=== PATIENT | male | born 1930 | race Caucasian/White ===

== ENCOUNTER 2016-08-05 20:25 | Inpatient (IN) | payer MEDICARE ==
[~2016-08-05] VITALS: Ht 175.3 cm; Wt 108.9 kg
[2016-08-05 22:48] LABS: RED BLOOD COUNT 5.22 M/UL (4.20-5.50); WHITE BLOOD COUNT 11.8 K/UL (4.5-11.0)
[2016-08-06 05:42] LABS: HEMOGLOBIN 13.7 gm/dl (14.0-17.5); RED BLOOD COUNT 4.72 M/UL (4.20-5.50)
[2016-08-06 06:08] LABS: BUN/CREATININE RATIO 15 (0-10)
[2016-08-06] MEDS ORDERED: HUMULIN N100 UNIT/1 SQ (10:09)
[2016-08-06] MEDS ORDERED: SYNTHROID25 MCG PO (10:09)
[2016-08-06] MEDS ORDERED: CARDURA 2MG TAB2 MG PO (10:10)
[2016-08-06] MEDS ORDERED: PROTONIX40 MG PO (10:11)
[2016-08-06] MEDS ORDERED: METOPROLOL SUCC25 MG PO (10:11)
[2016-08-06] MEDS ORDERED: ZOLOFT25 MG PO (10:12)
[2016-08-06] MEDS ORDERED: ZOCOR10 MG PO (10:12)
[2016-08-06] MEDS ORDERED: LASIX20 MG PO (10:12)
[2016-08-06] MEDS ORDERED: CATAPRES 0.1MG0.1 MG PO (10:13)
[2016-08-06] MEDS ORDERED: ASPIRIN EC81 MG PO (10:14)
[2016-08-06] MEDS ORDERED: LANTUS100 UNIT/1 SQ (10:14)
[2016-08-06] MEDS ORDERED: LISINOPRIL40 MG PO (10:23)
[2016-08-06] MEDS ORDERED: ZYRTEC10 MG PO (10:24)
[2016-08-06] MEDS ORDERED: NORVASC 5 MG TAB5 MG PO (10:25)
[2016-08-06 22:06] LABS: RED BLOOD COUNT 4.53 M/UL (4.20-5.50); WHITE BLOOD COUNT 10.1 K/UL (4.5-11.0)
[2016-08-07 05:51] LABS: HEMOGLOBIN 12.9 gm/dl (14.0-17.5); RED BLOOD COUNT 4.55 M/UL (4.20-5.50); WHITE BLOOD COUNT 9.7 K/UL (4.5-11.0)
[2016-08-08 04:14] LABS: HEMOGLOBIN 11.1 gm/dl (14.0-17.5); WHITE BLOOD COUNT 9.2 K/UL (4.5-11.0)
[2016-08-08 04:20] LABS: RED BLOOD COUNT 3.96 M/UL (4.20-5.50)
[2016-08-10 04:10] LABS: HEMOGLOBIN 11.7 gm/dl (14.0-17.5); RED BLOOD COUNT 4.11 M/UL (4.20-5.50); WHITE BLOOD COUNT 9.7 K/UL (4.5-11.0)
[2016-08-11 03:21] LABS: HEMOGLOBIN 12.2 gm/dl (14.0-17.5); RED BLOOD COUNT 4.22 M/UL (4.20-5.50); WHITE BLOOD COUNT 8.1 K/UL (4.5-11.0)
--- NOTE | 2016-08-11 17:34 | NUR ---
CURRENTLY PATIENT IS RESTING IN FOWLERS POSITION. SIDE RAILS UP X2. LIFELINE WITHIN REACH. FAMILY AT BEDSIDE. NO S/S OF RESPIRATORY DISTRESS OR PAIN NOTED. WILL CONTINUE TO MONITOR.
[2016-08-14 04:06] LABS: HEMOGLOBIN 12.8 gm/dl (14.0-17.5); RED BLOOD COUNT 4.52 M/UL (4.20-5.50); WHITE BLOOD COUNT 9.3 K/UL (4.5-11.0)
[2016-08-14 04:34] LABS: BUN/CREATININE RATIO 29 (0-10)
[2016-08-16 06:34] LABS: BUN/CREATININE RATIO 31 (0-10)
[2016-08-17 06:54] LABS: BUN/CREATININE RATIO 29 (0-10)
[2016-08-18 04:42] LABS: HEMOGLOBIN 12.1 gm/dl (14.0-17.5); RED BLOOD COUNT 4.3 M/UL (4.20-5.50); WHITE BLOOD COUNT 7.9 K/UL (4.5-11.0)
[2016-08-18 04:53] LABS: BUN/CREATININE RATIO 25 (0-10)
[2016-08-18] MEDS ORDERED: SENOKOT-S TABL1 EACH PO (12:54)
[2016-08-18] MEDS ORDERED: BRILINTA90 MG PO (12:56)
[2016-08-18] MEDS ORDERED: ALDACTONE25 MG PO (12:56)
[2016-08-18] MEDS ORDERED: TOPROL XL50 MG PO (12:57)
[2016-08-18] MEDS ORDERED: IMDUR ER TAB 6060 MG PO (12:57)
== END 2016-08-18 14:41 | disposition home health service (06) | DRG 246 ==
LOC: ER1 20:25 → PROG CARE 08-06 00:20 → MED SURG 4 08-06 00:20 → ZEROF 08-06 00:20 → PROG CARE 08-06 14:14 → MED SURG 4 08-11 14:12
PROVIDERS: Emergency Medicine; Hospitalist; Internal Medicine; Internal Medicine Infectious Disease; Internal Medicine Nephrology; ADMIT Internal Medicine
PROC: B2111ZZ Fluoroscopy of Multiple Coronary Arteries using Low Osmolar Contrast (ICD-10-PCS; principal; 2016-08-06)
PROC: 4A023N7 Measurement of Cardiac Sampling and Pressure, Left Heart, Percutaneous Approach (ICD-10-PCS; principal; 2016-08-06)
PROC: B2131ZZ Fluoroscopy of Multiple Coronary Artery Bypass Grafts using Low Osmolar Contrast (ICD-10-PCS; principal; 2016-08-06)
PROC: 027034Z Dilation of Coronary Artery, One Artery with Drug-eluting Intraluminal Device, Percutaneous Approach (ICD-10-PCS; principal; 2016-08-06)
PROC: 02703ZZ Dilation of Coronary Artery, One Artery, Percutaneous Approach (ICD-10-PCS; principal; 2016-08-06)
DX: I21.4 Non-ST elevation (NSTEMI) myocardial infarction (principal); J96.01 Acute respiratory failure with hypoxia; I50.23 Acute on chronic systolic (congestive) heart failure; I13.0 Hypertensive heart and chronic kidney disease with heart failure and stage 1 through stage 4 chronic kidney disease, or unspecified chronic kidney disease; I45.2 Bifascicular block; N17.9 Acute kidney failure, unspecified; I25.810 Atherosclerosis of coronary artery bypass graft(s) without angina pectoris; M62.82 Rhabdomyolysis; I24.8 Other forms of acute ischemic heart disease; N18.3 Chronic kidney disease, stage 3 (moderate); E11.22 Type 2 diabetes mellitus with diabetic chronic kidney disease; E11.65 Type 2 diabetes mellitus with hyperglycemia; E11.649 Type 2 diabetes mellitus with hypoglycemia without coma; K59.00 Constipation, unspecified; J20.9 Acute bronchitis, unspecified; E78.5 Hyperlipidemia, unspecified; K21.9 Gastro-esophageal reflux disease without esophagitis; Z95.1 Presence of aortocoronary bypass graft; I73.9 Peripheral vascular disease, unspecified; Z95.820 Peripheral vascular angioplasty status with implants and grafts; N40.0 Benign prostatic hyperplasia without lower urinary tract symptoms; K76.9 Liver disease, unspecified; F17.220 Nicotine dependence, chewing tobacco, uncomplicated; Z68.35 Body mass index [BMI] 35.0-35.9, adult; E66.9 Obesity, unspecified; F32.9 Major depressive disorder, single episode, unspecified; Z86.73 Personal history of transient ischemic attack (TIA), and cerebral infarction without residual deficits; Z79.82 Long term (current) use of aspirin; Z79.4 Long term (current) use of insulin; Z79.84 Long term (current) use of oral hypoglycemic drugs; Z79.899 Other long term (current) drug therapy; Z88.8 Allergy status to other drugs, medicaments and biological substances; F41.9 Anxiety disorder, unspecified; Z82.49 Family history of ischemic heart disease and other diseases of the circulatory system; Z83.3 Family history of diabetes mellitus; Z82.3 Family history of stroke
CPT/HCPCS: ECHO; 36415; 36600; 71010; 71020; 80048; 80053; 80061; 81001; 82043; 82140; 82550; 82553; 82570; 82803; 82962; 83036; 83605; 83690; 83735; 83874; 83880; 84156; 84443; 84484; 85025; 85027; 85347; 85610; 85730; 87040; 87070; 87086; 87205; 93005; 93306; 94640; 94664; 96365; 96366; 96372; 96375; 96376; 97110; 97116; 97530; 97535; 99291; C1725; C1769; C1874; C1887; C9600; J0360; J0690; J1335; J1610; J1644; J1940; J2250; J2270; J2405; J3010; J7030; J7040; J7050; Q0162; Q9965